=== PATIENT | female | born 1995 | race Caucasian/White ===

== ENCOUNTER → 2018-07-15 18:08 | Outpatient (CLI) | payer OTHER, SELFPAY ==
[2018-07-15 18:24] LABS: Basophils % 0.4 % (0.1-2.0); Eosinophils # 0.3 K/mm3 (0.0-0.4); Eosinophils % 2.3 % (0.1-12.0); Hematocrit 42.5 % (37.0-47.0); Hemoglobin 13.7 g/dL (12.2-16.2); Lymphocytes # 2.6 K/mm3 (0.7-4.5); Mean Corpuscular HGB Conc 32.3 g/dL (31.8-35.4); Mean Corpuscular Hemoglobin 30.8 pg (27.0-31.2); Mean Corpuscular Volume 95.4 fl (81-99); Mean Platelet Volume 8.7 fl (7.4-10.4); Monocytes # 0.6 K/mm3 (0.1-1.0); Monocytes % 5.2 % (1.7-9.3); Neutrophils # 7.9 K/mm3 (1.8-7.8); Neutrophils % 69.2 % (37.0-80.0); Platelet Count 358 K/mm3 (142-424); Red Blood Count 4.46 M/mm3 (4.20-5.40); Red Cell Distribution Width 13.1 % (11.5-17.5); White Blood Count 11.4 K/mm3 (4.8-10.8)
[2018-07-15 18:43] LABS: Alanine Aminotransferase 20 U/L (12-78); Albumin Level 4.2 gm/dL (3.4-5.0); Albumin/Globulin Ratio 1.2 (1.1-1.8); Alkaline Phosphatase 119 U/L (46-116); Anion Gap 16.1 mEq/L (5-15); Aspartate Amino Transferase 13 U/L (15-37); Bilirubin,Total 0.2 mg/dL (0.2-1.0); Blood Urea Nitrogen 9 mg/dL (7-18); Calcium 8.8 mg/dL (8.5-10.1); Carbon Dioxide 23 mmol/L (21.0-32.0); Chloride 103 mmol/L (98-107); Chol/HDL Ratio 5.1 (1-3.5); Cholesterol 233 mg/dL (140-200); Creatinine,Serum 0.77 mg/dL (0.55-1.02); Estimated Glomerular Filt Rate 93 ml/min (>60); GFR (African American) 112 ML/MIN (>60); Globulin 3.5 gm/dl (1.3-3.2); Glucose 94 mg/dL (74-106); HDL Cholesterol 46 mg/dL (29-89); LDL Cholesterol 164 mg/dL (0-130); Potassium 4.1 mmoL/L (3.5-5.1); Sodium 138 mmol/L (136-145); Thyroid Stimulating Hormone 3.39 uIU/ml (0.358-3.740); Total Protein,Serum 7.7 gm/dL (6.4-8.2); Triglycerides 115 mg/dL (30-200); VLDL Cholesterol 23 mg/dL (0-40)
[2018-07-18 10:59] LABS: Vitamin D 25 Hydroxy 24.9 ng/mL (30.0-100.0)
== END ==
PROVIDERS: Visit Provider Nurse Practitioner Family
DX: R53.83 Other fatigue (principal); E55.9 Vitamin D deficiency, unspecified; Z79.899 Other long term (current) drug therapy
CPT/HCPCS: 80053; 80061; 82652; 84439; 84443; 85025

== ENCOUNTER → 2019-03-27 14:10 | Outpatient (CLI) | payer OTHER, SELFPAY ==
[2019-03-27 15:03] LABS: Amphetamine/Metha Screen,Urine Negative ng/mL (<1000); Barbiturates Screen,Urine Negative ng/mL (<200); Benzodiazepines Screen,Urine Positive ng/mL (<200); Cannabinoid Screen,Urine Negative ng/mL (<50); Cocaine Screen,Urine Negative ng/mL (<300); Methadone Screen,Urine Negative ng/mL (<300); Opiate Screen,Urine Negative ng/mL (<300); Phencyclidine Screen,Urine Negative ng/mL (<25)
[2019-04-04 02:28] LABS: Alprazolam Negative (Cutoff=100); Benzodiazepines Positive ng/mL (Cutoff=100); Clonazepam Positive (.); Flurazepam Negative (Cutoff=100); Lorazepam Negative (Cutoff=100); Midazolam Negative (Cutoff=100); Temazepam Negative (Cutoff=100); Triazolam Negative (Cutoff=100)
[2019-04-04 06:50] LABS: Clonazepam Confirm 998 ng/mL (Cutoff=100)
== END ==
PROVIDERS: Visit Provider Emergency Medicine
DX: Z79.899 Other long term (current) drug therapy (principal); F41.9 Anxiety disorder, unspecified
CPT/HCPCS: 80305; 80346

== ENCOUNTER → 2019-05-19 13:33 | Outpatient (CLI) | payer OTHER, SELFPAY ==
[2019-05-19 15:52] LABS: Amphetamine/Metha Screen,Urine Negative ng/mL (<1000); Barbiturates Screen,Urine Negative ng/mL (<200); Benzodiazepines Screen,Urine Negative ng/mL (<200); Cannabinoid Screen,Urine Positive ng/mL (<50); Cocaine Screen,Urine Negative ng/mL (<300); Methadone Screen,Urine Negative ng/mL (<300); Opiate Screen,Urine Negative ng/mL (<300); Phencyclidine Screen,Urine Negative ng/mL (<25)
[2019-05-24 09:11] LABS: Alprazolam Negative (Cutoff=100); Benzodiazepines Negative ng/mL (Cutoff=100); Clonazepam Negative (Cutoff=100); Flurazepam Negative (Cutoff=100); Lorazepam Negative (Cutoff=100); Midazolam Negative (Cutoff=100); Temazepam Negative (Cutoff=100); Triazolam Negative (Cutoff=100)
== END ==
PROVIDERS: Nurse Practitioner Family; Visit Provider Emergency Medicine
DX: Z79.899 Other long term (current) drug therapy (principal); F32.9 Major depressive disorder, single episode, unspecified; F41.9 Anxiety disorder, unspecified
CPT/HCPCS: 80305; 80346

== ENCOUNTER → 2019-06-13 14:38 | Outpatient (CLI) | payer OTHER, SELFPAY ==
[2019-06-13 18:48] LABS: Amphetamine/Metha Screen,Urine Negative ng/mL (<1000); Barbiturates Screen,Urine Negative ng/mL (<200); Benzodiazepines Screen,Urine Negative ng/mL (<200); Cannabinoid Screen,Urine Positive ng/mL (<50); Cocaine Screen,Urine Negative ng/mL (<300); Methadone Screen,Urine Negative ng/mL (<300); Opiate Screen,Urine Negative ng/mL (<300); Phencyclidine Screen,Urine Negative ng/mL (<25)
[2019-06-21 14:11] LABS: Alprazolam Negative (Cutoff=100); Benzodiazepines Negative ng/mL (Cutoff=100); Clonazepam Negative (Cutoff=100); Flurazepam Negative (Cutoff=100); Lorazepam Negative (Cutoff=100); Midazolam Negative (Cutoff=100); Temazepam Negative (Cutoff=100); Triazolam Negative (Cutoff=100)
== END ==
PROVIDERS: Visit Provider Emergency Medicine
DX: Z79.899 Other long term (current) drug therapy (principal)
CPT/HCPCS: 80305; 80346

== ENCOUNTER 2020-04-23 21:45 | Emergency (ER) | payer OTHER, SELFPAY ==
[2020-04-23 21:55] VITALS: BP 136/76; PULSE 99; RESP 16; TEMP 36.7; O2SAT 99; BMI 43.3
--- NOTE | 2020-04-23 22:04 | HMH.EDSKAF ---
ED Disposition Clinical Impression: Puncture wound of foot Qualifiers: Encounter type: initial encounter Laterality: right Qualified Code(s): S91.331A - Puncture wound without foreign body, right foot, initial encounter Disposition: Home, Self-Care Condition on Discharge: Good Instructions: DI for Puncture Wound Additional Instructions: keep clean and see pcp for follow up Referrals: Dalila Riggs APRN [Primary Care Provider] - - Critical Care Critical Care Time: No Attestation: On 04/23/20, the high probability of a clinically significant, sudden or life threatening deterioration of the following system(s) required my full and direct attention, intervention and personal management. The time I documented below is in addition to time spent performing reported procedures but includes the following listed in this critical care notation. Medical Decision Making - Medical Records Medical records reviewed: Yes: I reviewed the patient's medical records. - Zachariah Inquiry Pt receiving controlled substance: No Vital Signs: 04/23/20 21:55 Temperature 98.1 F Temperature Source Oral Pulse Rate [Right Brachial] 99 H Respiratory Rate 16 Blood Pressure [Right Arm] 136/76 Blood Pressure Mean [Right Arm] 96 Blood Pressure Source [Right Arm] Automatic Cuff Blood Pressure Position [Right Arm] Sitting 02 Sat by Pulse Oximetry 99 Oxygen Delivery Method Room Air Orders (Tests/Meds): ED MEDICATIONS Discontinued Medications Generic Name Dose Route Start Last Admin Trade Name Frelennox PRN Reason Stop Dose Admin Tetanus/Diphtheria Toxoids 0.5 ml 04/23/20 22:00 04/23/20 22:02 Tenivac 0.5ml Syringe IM 04/23/20 22:01 0.5 ml .ONCE ONE Administration Skin/Abscess/FB HPI - General Chief complaint: Extremity Injury, Lower Stated complaint: AO 0922@11AM Nail wound R foot Time Seen by Provider: 04/23/20 22:04 Mode of Arrival: Ambulatory Source of Information: Patient, Medical Record Limitations: No Limitations Description of Symptoms (Recalled from ER Triage Doc. by RN): Patient reports she stepped on a small nail with her right foot. Patient just wants her tdap updated. - History of Present Illness HPI narrative: puncture wd rt foot- stepped on nail MD complaint: other (puncture wd ) Tetanus up to date: no Location: R foot Severity: moderate Associated symptoms: denies other symptoms Treatments prior to arrival: none - Related Data Home Medications Medication Instructions Recorded Confirmed levothyroxine 112 mcg tablet 187 mcg PO 30 Days tab 07/15/18 06/13/19 Previous Rx's Medication Instructions Recorded citalopram 10 mg tablet 10 mg PO DAILY #90 tab 03/29/19 trazodone 50 mg tablet 50 mg PO QHS #90 tab 03/29/19 clonazepam 0.5 mg tablet 0.5 mg PO TID 14 Days #42 tab 05/19/19 vilazodone 20 mg tablet 20 mg PO DAILY 30 Days #30 tab 06/05/19 Allergies Allergy/AdvReac Type Severity Reaction Status Date / Time ropinirole AdvReac Severe Anaphylaxis Verified 06/13/19 09:22 [facility] History - Hepatitis A Screen Drug use history?: No High risk sexual behaviors?: No History of sexually transmitted infection?: No Currently employed?: No Childcare worker?: No Do you have indoor plumbing?: Yes Do you have electricity?: Yes Attestation statement:: This patient has been screened for Hepatitis A risk factors. I have reviewed the patient's past medical history: Yes Medical History: Reports:: Anxiety, Cancer, Depression, Migraine Denies:: Chronic Obstructive Pulmonary Disease (COPD), Diabetes Mellitus Type 1, Diabetes Mellitus Type 2, Internal Pacemaker, Transient Ischemic Attacks (TIA) Other Medical History: Reports: Hypothyroidism, Thyroid Disease Laterality Cases: Bilateral: Myringotomy (Ear Tubes) Other Surgeries: Yes: Thyroidectomy, Other. No: Pacemaker Amputation: No Fractures: No - Social History Smoking Status: Former smoker # Packs/Day (cigarettes): 1 #Yrs smoked (if
[2020-04-23 22:08] VITALS: BP 136/76; PULSE 95; RESP 16; TEMP 36.7; O2SAT 98
== END 2020-04-23 22:15 | disposition home or self-care (01) ==
PROVIDERS: Emergency Provider Emergency Medicine; PCP Nurse Practitioner
DX: S91.331A Puncture wound without foreign body, right foot, initial encounter (principal); Z23 Encounter for immunization; W22.8XXA Striking against or struck by other objects, initial encounter; Y92.019 Unspecified place in single-family (private) house as the place of occurrence of the external cause; F41.8 Other specified anxiety disorders; G43.709 Chronic migraine without aura, not intractable, without status migrainosus; E03.9 Hypothyroidism, unspecified; Z87.891 Personal history of nicotine dependence
CPT/HCPCS: 90471; 90714; 96372; 99281

== ENCOUNTER → 2021-12-23 09:18 | Outpatient (CLI) | payer OTHER, SELFPAY | PROVIDERS: PCP Nurse Practitioner Family; Visit Provider Obstetrics & Gynecology | DX: Z31.430 Encounter of female for testing for genetic disease carrier status for procreative management (principal); Z36.0 Encounter for antenatal screening for chromosomal anomalies; O28.3 Abnormal ultrasonic finding on antenatal screening of mother | CPT/HCPCS: 36415 ==

== ENCOUNTER → 2022-01-20 08:49 | Outpatient (CLI) | payer OTHER, SELFPAY ==
[2022-01-20 09:13] LABS: Basophils # 0.1 K/mm3 (0-0.2); Basophils % 0.7 % (0.1-2.0); Eosinophils # 0.1 K/mm3 (0.0-0.4); Eosinophils % 1.6 % (0.1-12.0); Hematocrit 37.4 % (37.0-47.0); Hemoglobin 12.6 g/dL (12.2-16.2); Lymphocytes # 1.5 K/mm3 (0.7-4.5); Mean Corpuscular HGB Conc 33.8 g/dL (31.8-35.4); Mean Corpuscular Hemoglobin 31.8 pg (27.0-31.2); Mean Platelet Volume 9.2 fl (7.4-10.4); Monocytes # 0.3 K/mm3 (0.1-1.0); Monocytes % 3.2 % (1.7-9.3); Neutrophils # 6.7 K/mm3 (1.8-7.8); Neutrophils % 77.6 % (37.0-80.0); Platelet Count 222 K/mm3 (142-424); Red Blood Count 3.98 M/mm3 (4.20-5.40); Red Cell Distribution Width 13.4 % (11.5-17.5); White Blood Count 8.6 K/mm3 (4.8-10.8)
[2022-01-21 07:12] LABS: HIV Screen 4th Generation wRfx Non Reactive (Non Reactive); Hepatitis B Surface Antigen Negative (Negative); Hepatitis C Antibody <0.1 s/co ratio (0.0-0.9)
[2022-01-21 08:23] LABS: Rubella Antibodies, IgG <0.90 index (Immune >0.99)
[2022-01-21 10:12] LABS: Rapid Plasma Reagin Ab Titer Non Reactive (NonRea<1:1)
== END ==
PROVIDERS: PCP Nurse Practitioner Family; Visit Provider Obstetrics & Gynecology
DX: Z34.90 Encounter for supervision of normal pregnancy, unspecified, unspecified trimester (principal)
CPT/HCPCS: 36415; 85025; 86592; 86703; 86762; 86850; 87340; 87380; G0432

== ENCOUNTER → 2022-02-17 08:35 | Outpatient (CLI) | payer OTHER, SELFPAY | PROVIDERS: PCP Nurse Practitioner Family; Visit Provider Obstetrics & Gynecology | DX: Z34.90 Encounter for supervision of normal pregnancy, unspecified, unspecified trimester (principal) ==

== ENCOUNTER → 2022-04-03 08:38 | Outpatient (CLI) | payer OTHER, SELFPAY ==
[2022-04-03 09:07] LABS: Basophils % 0.3 % (0.1-2.0); Eosinophils # 0.2 K/mm3 (0.0-0.4); Eosinophils % 1.1 % (0.1-12.0); Hematocrit 38.8 % (37.0-47.0); Hemoglobin 11.9 g/dL (12.2-16.2); Lymphocytes # 1.9 K/mm3 (0.7-4.5); Lymphocytes % 13.8 % (10-50); Mean Corpuscular HGB Conc 30.8 g/dL (31.8-35.4); Mean Corpuscular Hemoglobin 30.6 pg (27.0-31.2); Mean Corpuscular Volume 99.4 fl (81-99); Mean Platelet Volume 9.1 fl (7.4-10.4); Monocytes # 0.6 K/mm3 (0.1-1.0); Monocytes % 4.5 % (1.7-9.3); Neutrophils # 10.8 K/mm3 (1.8-7.8); Neutrophils % 80.3 % (37.0-80.0); Platelet Count 305 K/mm3 (142-424); Red Cell Distribution Width 13.7 % (11.5-17.5); White Blood Count 13.4 K/mm3 (4.8-10.8)
[2022-04-03 10:10] LABS: Glucose,Fasting 100 mg/dl (74-100)
[2022-04-03 10:17] LABS: Thyroid Stimulating Hormone 2.83 uIU/mL (0.465-4.68)
[2022-04-03 11:09] LABS: Glucose 1 Hour 132 mg/dL (74-100)
== END ==
PROVIDERS: PCP Nurse Practitioner Family; Visit Provider Obstetrics & Gynecology
DX: Z34.90 Encounter for supervision of normal pregnancy, unspecified, unspecified trimester (principal); E03.9 Hypothyroidism, unspecified
CPT/HCPCS: 36415; 82951; 84443; 85025

== ENCOUNTER → 2022-06-08 10:42 | Outpatient (CLI) | payer OTHER, SELFPAY ==
--- NOTE | 2022-06-08 10:42 | US_ITS ---
FINAL REPORT CLINICAL HISTORY: lga/bpp/ob follow up FINDINGS: There is a single live intrauterine gestation. Presentation is cephalic. The cervix is closed and measures 3.9 cm Placenta is lateral/posterior fundal wrap, grade 2. movement is noted. Heart rate is measured at 156 beats per minute. CARLOS: 15.8 cm, normal. MEASUREMENTS: ULTRASOUND AGE: 37 weeks 0 days. GESTATION AGE: 36 weeks 3 days. ESTIMATED WEIGHT: 2954 g GROWTH PERCENTILE: 55% L MP percentile BPD: 9.2 cm corresponding with 37 weeks 3 days. OFD: 11.9 cm. HC: 33.4 cm corresponding with 38 weeks 2 days. AC: 32.3 cm corresponding with 36 weeks 2 days. FL: 7.0 cm corresponding with 36 weeks 0 days. HC/AC: 1.03 CI: 77% FL/BPD: 76% FL/AC: 22% BPP: 03/09 Breathin/2 Movement: 2/2 Tone: 2/2 Fluid volume: 2/2 IMPRESSION: Single living IUP with an ultrasound age of 37 weeks 0 days. BPP: 03/09 CARLOS: 15.8 cm Reviewed, Interpreted and Dictated by Tyler Hunt MD Transcribed by Roseann Call Authenticated and [facility]
== END ==
PROVIDERS: PCP Nurse Practitioner Family; Visit Provider Obstetrics & Gynecology
DX: O36.60X0 Maternal care for excessive fetal growth, unspecified trimester, not applicable or unspecified (principal); Z3A.20 20 weeks gestation of pregnancy
CPT/HCPCS: 76816; 76819

== ENCOUNTER → 2022-06-09 10:30 | Outpatient (CLI) | payer OTHER, SELFPAY | PROVIDERS: Visit Provider Obstetrics & Gynecology | DX: Z34.90 Encounter for supervision of normal pregnancy, unspecified, unspecified trimester (principal) | CPT/HCPCS: 86403 ==

== ENCOUNTER 2022-06-28 16:00 | Inpatient (IN) | payer OTHER, SELFPAY ==
[2022-06-28 16:17] VITALS: BMI 38.7
[2022-06-28 17:08] LABS: Coronavirus 19, PCR Not Detected (NotDetected); Influenza A, PCR Not Detected (NotDetected); Influenza B, PCR Not Detected (NotDetected); Microscopic, Urine URINE MICROSCOPIC (MICROSCOPIC)
[2022-06-28 17:13] LABS: Basophils # 0.1 K/mm3 (0-0.2); Basophils % 0.5 % (0.1-2.0); Eosinophils # 0.2 K/mm3 (0.0-0.4); Eosinophils % 1.1 % (0.1-12.0); Hematocrit 39.2 % (37.0-47.0); Lymphocytes # 1.7 K/mm3 (0.7-4.5); Lymphocytes % 12.5 % (10-50); Mean Corpuscular HGB Conc 33.2 g/dL (31.8-35.4); Mean Corpuscular Hemoglobin 31.6 pg (27.0-31.2); Mean Corpuscular Volume 95.3 fl (81-99); Mean Platelet Volume 9.5 fl (7.4-10.4); Monocytes # 0.8 K/mm3 (0.1-1.0); Monocytes % 5.6 % (1.7-9.3); Neutrophils # 10.9 K/mm3 (1.8-7.8); Neutrophils % 80.2 % (37.0-80.0); Platelet Count 313 K/mm3 (142-424); Red Blood Count 4.11 M/mm3 (4.20-5.40); Red Cell Distribution Width 13.7 % (11.5-17.5); White Blood Count 13.6 K/mm3 (4.8-10.8)
[2022-06-28 17:14] LABS: Appearance,Urine CLOUDY (Clear); Bilirubin,Urine Negative (Negative); Blood, Urine Negative (Negative); Color,Urine YELLOW (Yellow); Glucose,Urine (UA) Negative (Negative); Ketones,Urine Negative (Negative); Leukocyte Esterase,Urine TRACE (Negative); Nitrate,Urine Negative (Negative); PH,Urine 7.5 (5.0-8.5); Protein,Urine TRACE (Negative); Urobilinogen,Urine 0.2 EU/dl (0.2)
[2022-06-28 17:26] LABS: Bacteria,Urine 3+ /lpf; Renal Epithelial Cells,Urine Occasional #/lpf (0); WBC,Urine Occasional #/hpf (0-3)
[2022-06-28 17:27] LABS: Barbiturates Screen,Urine Negative ng/ml (<200); Benzodiazepines Screen,Urine Negative ng/ml (<200); Mucus,Urine Trace /lpf
[2022-06-28 17:28] LABS: Amphetamine/Metha Screen,Urine Negative ng/ml (<1000); Cannabinoid Screen,Urine Negative ng/ml (<50)
[2022-06-28 17:29] LABS: Cocaine Screen,Urine Negative ng/ml (<300)
[2022-06-28 17:30] LABS: Methadone Screen,Urine Negative ng/ml (<300); Opiate Screen,Urine Negative ng/ml (<300)
[2022-06-28 17:31] LABS: Phencyclidine Screen,Urine Negative ng/ml (<25)
[2022-06-28 17:33] VITALS: BP 130/70; PULSE 106; RESP 20; TEMP 36.7; O2SAT 100; BMI 38.7
--- NOTE | 2022-06-29 06:57 | EXP.OB.APHP ---
OB - H&P: HPI Antepartum History of Present Illness Chief complaint: Scheduled elective induction of labor History of present illness: Ms Melia Larkin is a 27 yo at 39w3d, by first trimester ultrasound, with EDC 07/03/22, who presents to [facility] Labor and Delivery for scheduled elective induction of labor. GBS negative. She has had good care. History of Present Criteria for establishing EDC:: based on 1st trimester US only care: good care Ultrasounds: normal mid trimester US Obstetrical complications: other (hypothyroidism) Labs Blood type: O (+) positive Rubella: nonimmune RPR/VDRL: nonreactive GBS status: negative HBsAG: negative [facility] Medical History Size of fetus inconsistent with dates in third trimester Thyroid cancer Social History Smoking Status: Current every day smoker tobacco type: cigarettes packs per day: 1 alcohol intake: never substance use type: marijuana and painkillers current occupational status: unemployed Travel in the last 8 weeks: None number of children: 0 Review of Systems Review of Systems Review of systems:: pertinent systems reviewed and negative unless documented below Meds Home Medications and Allergies Home Medications Medication Instructions Recorded Confirmed Type levothyroxine 200 mcg tablet 200 mcg PO 12/09/21 06/16/22 History (Synthroid) famotidine 20 mg tablet 20 mg PO BID #60 tabs 12/23/21 06/16/22 Rx levothyroxine 50 mcg tablet 50 mcg PO DAILY 01/20/22 06/16/22 History (Euthyrox) promethazine 25 mg tablet 25 mg PO .Q8HRS PRN nausea and 02/17/22 06/16/22 Rx vomiting #20 tabs ferrous sulfate 325 mg (65 mg 325 mg PO DAILY #30 tabs 02/19/22 06/16/22 Rx iron) tablet buspirone 10 mg tablet 10 mg PO BID #60 tabs 04/20/22 06/16/22 Rx New Prescriptions to Start Prescriptions: Allergies Allergy/AdvReac Type Severity Reaction Status Date / Time ropinirole AdvReac Severe Anaphylaxis Verified 06/23/22 14:22 OB - H&P: Exam Physical Exam Vital signs: Temp Pulse Resp BP Pulse Ox 98.0 F 106 H 20 130/70 100 06/28/22 17:33 06/28/22 17:33 06/28/22 17:33 06/28/22 17:33 06/28/22 17:33 Constitutional no acute distress and cooperative Routine HEENT Exam Head: Present normocephalic and atraumatic Eye: Absent conjunctivae pink ENT: Present mucous membranes moist Routine Neck Exam Present full ROM Routine Respiratory Exam Present CTA bilaterally and normal respiratory effort Routine Cardiovascular Exam Present RRR Routine Abdominal Exam Present soft (Gravid); Absent tenderness Routine Exam External: Present normal urethra appearance; Absent erythema, lesions or lacerations Routine Extremities Exam Present full ROM; Absent edema or calf tenderness Routine Neurological Exam Present alert, oriented X3 and moving all extremities Routine Psychiatric Exam Present normal affect and cooperative Detailed Labor and Delivery Exam Dilation (cm): 3 Effacement (%): 60 Cervix position: mid station: -3 Consistency: medium Membranes: artificially ruptured (Amniotomy performed at 0652, moderate amount ) Amniotic fluid: thin meconium Baseline heart rate: 135 monitor accelerations: Present monitor decelerations: None skilled nursing variability: Moderate (11-25) Contraction frequency (min): 3 Tachysystole: No OB - Results Labs Labs: Short CBC 06/28/22 Range/Units 16:49 WBC 13.6 H (4.8-10.8) K/mm3 Hgb 13.0 (12.2-16.2) g/dL Hct 39.2 (37.0-47.0) % Plt Count 313 (142-424) K/mm3 Urine 06/28/22 Range/Units 16:49 Urine Color Yellow (Yellow) Urine Appearance Cloudy (Clear) Urine pH 7.5 (5.0-8.5) Ur Specific [place] 1.020 (1.005-1.030) Urine Protein Trace (Negative) Urine Glucose (UA) Negative (Negative) OB - A/P Antepart
--- NOTE | 2022-06-29 08:58 | HMH.PHAINT1 ---
Pharmacy Intervention Comments: MEDICATION RECONCILIATION COMPLETED ON PATIENT USING EXTERNAL FILL HISTORY FROM PHARMACY. -JOSE MARCANO, RAYMONDD
--- NOTE | 2022-06-29 09:53 | P.PN_ITS ---
[facility] Medical History Size of fetus inconsistent with dates in third trimester Thyroid cancer Social History Smoking Status: Current every day smoker tobacco type: cigarettes packs per day: 1 alcohol intake: never substance use type: marijuana and painkillers current occupational status: unemployed Travel in the last 8 weeks: None number of children: 0 [facility] Anesthesia Checklist Patient Identification Patient Identification: Arm Band and Verbal (Name & ) Structural Data Admitted From: Inpatient Planned Operative Procedure/s: Labor epidural Consent for Planned Operative Procedure(s) Verified: Yes NPO Status Verified Time NPO: 00:00 Chart Verification Results Verified: CBC and BMP Additional verifications Patient : Yes Airway Assessment C-Spine Mobility Assessed: Yes TMJ Mobility Assessed: Yes Dentition: Good Dentition Neurological Assessment Level of Consciousness: Awake Hx Seizures: No Numbness or tingling in extremities: No Anesthesia Plan Anesthesia Risk discussed: Yes Anesthesia Plan: Verified ASA Class: III Anesthesia Type: Epidural
--- NOTE | 2022-06-29 23:30 | EXP.DN ---
Delivery Note Delivery Date:: 06/29/22 Delivery Time:: 23:04 Anesthesia Type: Epidural Was labor medically induced?: No Induction method: per pitocin protocol Gestational age (weeks): 39 delivered prior to 39 weeks?: No Infant Gender: Female at 1 minute: 8 at 5 minutes: 9 LAC or MLE?: MLE Delivery Procedure:: Mom complete with epidural. Pushed for approximately 50 minutes. Midline episiotomy performed for maternal exhaustion and tight perineal band. Patient gave verbal consent for MLE. Head delivered spontaneously over MLE in NANCY position. No nuchal cord. Anterior shoulder delivered with gentle downward pressure. Posterior shoulder and remainder of body delivered spontaneously. Baby placed on maternal abdomen, mouth and nares bulb suctioned, warmed/dried and stimulated. Delayed cord clamping was performed for 60 seconds. Cord was clamped and cut by father of baby. Cord blood was obtained. Placenta delivered spontaneously and intact. Midline episiotomy repaired with 3-0 Vicryl. Excellent hemostasis noted. Mom and baby were skin to skin and doing well after delivery. Live female baby (baby's name is Debbi) weighing 8 lb 12 oz APGARs 8, 9 EBL 300 cc Placental Delivery Description: Spontaneous
[2022-06-30 07:31] LABS: Basophils # 0.1 K/mm3 (0-0.2); Basophils % 0.3 % (0.1-2.0); Eosinophils # 0.1 K/mm3 (0.0-0.4); Eosinophils % 0.4 % (0.1-12.0); Hematocrit 32.3 % (37.0-47.0); Hemoglobin 10.9 g/dL (12.2-16.2); Lymphocytes # 2.1 K/mm3 (0.7-4.5); Lymphocytes % 9.9 % (10-50); Mean Corpuscular HGB Conc 33.6 g/dL (31.8-35.4); Mean Corpuscular Hemoglobin 32.3 pg (27.0-31.2); Mean Platelet Volume 9.6 fl (7.4-10.4); Monocytes # 1.1 K/mm3 (0.1-1.0); Monocytes % 5.1 % (1.7-9.3); Neutrophils # 17.8 K/mm3 (1.8-7.8); Neutrophils % 84.2 % (37.0-80.0); Platelet Count 288 K/mm3 (142-424); Red Blood Count 3.37 M/mm3 (4.20-5.40); Red Cell Distribution Width 13.6 % (11.5-17.5); White Blood Count 21.1 K/mm3 (4.8-10.8)
[2022-06-30 07:34] LABS: MANUAL DIFFERENTIAL MANUAL DIFFERENTIAL (MANUAL DIFF)
[2022-06-30 07:58] LABS: Lymphocytes % 6 % (10-50); Monocytes % 4 % (2-9); Neutrophils % 90 % (42-76); Platelet Estimate Normal; RBC Morphology Normal; Total Cells Counted 100
--- NOTE | 2022-06-30 08:55 | P.PN_ITS ---
Subjective *Date: 06/30/22 *Time: 08:55 Interval history: PPD # 1 s/p with MLE Resting comfortably. She is breast feeding. Light lochia. Voiding without difficulty and passing flatus. Denies fever/chills, chest pain and shortness of breath. No headaches, vision changes or swelling. Medical Exam Vital signs and Labs for Last 24 Hours: Laboratory Results - last 24 hr 06/30/22 07:16: WBC 21.1 H* D, RBC 3.37 L, Hgb 10.9 L, Hct 32.3 L, MCV 96.0, MCH 32.3 H, MCHC 33.6, RDW 13.6, Plt Count 288, MPV 9.6, Neut % (Auto) 84.2 H, Lymph % (Auto) 9.9 L, [place] % (Auto) 5.1, Eos % (Auto) 0.4, Baso % (Auto) 0.3, Neut # (Auto) 17.8 H, Lymph # (Auto) 2.1, [place] # (Auto) 1.1 H, Eos # (Auto) 0.1, Baso # (Auto) 0.1, Total Counted 100, Neutrophils % (Manual) 90 H, Lymphocytes % (Manual) 6 L, Monocytes % (Manual) 4, Platelet Estimate Normal, RBC Morphology Normal I & O for Labs for Last 24 Hours: Intake & Output 06/27/22 06/28/22 06/29/22 06/30/22 23:59 23:59 23:59 23:59 Weight 254 lb 15.998 oz Microbiology Reports for the Last 24 Hours: Microbiology 06/28/22 16:49 Urine,Clean Catch Urine Culture - Preliminary NO GROWTH AFTER 24 HOURS Head: Present atraumatic and normocephalic ENT: Present mucous membranes moist Neck: Present full ROM Respiratory: Present CTA bilaterally and normal respiratory effort Cardiac: Present Reg Rate and Rhythm GI: Present soft and normal bowel sounds; Absent distention or tenderness Comments:: Uterine fundus firm and below umbilicus Rectal (female): Present deferred (female): Present deferred Extremities: Present normal inspection and full ROM; Absent edema or calf tenderness Neuro: Present Grossly Intact, alert, awake, oriented x 3 and moves all extremities Assessment and Plan *Assessment and plan (1) : Status: Acute Qualifiers: Weeks of gestation: 38 weeks Qualified Code(s): Z3A.38 - 38 weeks gestation of Category: Medical Code(s): Z34.90 - Encounter for supervision of normal , unspecified, unspecified trimester (2) Obesity (BMI 35.0-39.9 without comorbidity): Status: Acute Category: Medical Code(s): E66.9 - Obesity, unspecified (3) Hypothyroidism: Status: Acute Qualifiers: Hypothyroidism type: other Qualified Code(s): E03.8 - Other specified hypothyroidism Category: Medical Code(s): E03.9 - Hypothyroidism, unspecified (4) Depression: Status: Acute Qualifiers: Depression Type: unspecified Qualified Code(s): F32.A - Depression, unspecified Category: Medical Code(s): F32.9 - Major depressive disorder, single episode, unspecified (5) Anxiety: Status: Acute Category: Medical Code(s): F41.9 - Anxiety disorder, unspecified (6) Tobacco use: Status: Acute Category: Social Hx Code(s): Z72.0 - Tobacco use (7) Rubella non-immune status, antepartum: Status: Acute Category: Medical Code(s): O09.899 - Supervision of other high risk pregnancies, unspecified trimester; Z28.39 - Other underimmunization status Plan Continue routine care Encouraged increased ambulation MMR before discharge Plan d/c home PPD # 2
--- NOTE | 2022-07-01 07:56 | P.PCN_ITS ---
[facility] Procedure Note Date: 06/30/22 Time: 15:45 Procedure Note:: Called by OB RN due to patient complaint of unrelenting headache. Conservative measures including ;laying flat and consuming caffeine had been unsuccessful. Discussed options with patient. Explained risks of blood patch to patient and family. Patient agreed to proceed. Accessed epidural space at L3-4 and inserted 13 ccs of autologous blood. Patient tolerated well. Patient stated immediate relief. Requested OB RN to continue monitoring for adverse effects.
[2022-07-01 08:01] LABS: Basophils # 0.1 K/mm3 (0-0.2); Basophils % 0.4 % (0.1-2.0); Eosinophils # 0.3 K/mm3 (0.0-0.4); Eosinophils % 1.8 % (0.1-12.0); Hematocrit 31.3 % (37.0-47.0); Lymphocytes # 2.2 K/mm3 (0.7-4.5); Lymphocytes % 16.2 % (10-50); Mean Corpuscular HGB Conc 31.9 g/dL (31.8-35.4); Mean Corpuscular Hemoglobin 31.6 pg (27.0-31.2); Monocytes # 0.6 K/mm3 (0.1-1.0); Monocytes % 4.1 % (1.7-9.3); Neutrophils # 10.6 K/mm3 (1.8-7.8); Neutrophils % 77.5 % (37.0-80.0); Platelet Count 293 K/mm3 (142-424); Red Blood Count 3.16 M/mm3 (4.20-5.40); Red Cell Distribution Width 13.8 % (11.5-17.5); White Blood Count 13.7 K/mm3 (4.8-10.8)
--- NOTE | 2022-07-01 08:24 | EXP.ACUTE.PN ---
Subjective *Date: 07/01/22 *Time: 08:47 Interval history: PPD # 2 s/p with MLE Resting comfortably in bed. She is breast feeding. Light lochia. Pain controlled. Tolerating regular diet. Voiding without difficulty and passing flatus. Denies fever/chills, chest pain and shortness of breath. She had a headache that worsened during the day yesterday and subsequently had a blood patch performed. She admits headache has resolved this morning. Denies dizziness and lightheadedness. Admits to mild lower extremity swelling. Medical Exam Vital signs and Labs for Last 24 Hours: Laboratory Results - last 24 hr 06/28/22 16:49: Urine Color Yellow, Urine Appearance Cloudy, Urine pH 7.5, Ur Specific [place] 1.020, Urine Protein Trace, Urine Glucose (UA) Negative, Urine Ketones Negative, Urine Blood Negative, Urine Nitrate Negative, Urine Bilirubin Negative, Urine Urobilinogen 0.2, Ur Leukocyte Esterase Trace, Urine WBC Occasional, Ur Squamous Epith Cells 5-10, Ur Renal Epithelial Cell Occasional, Urine Bacteria 3+, Urine Mucus Trace 06/28/22 16:49: Urine Opiates Screen Negative, Urine Methadone Screen Negative, Ur Barbituates Screen Negative, Ur Phencyclidine Scrn Negative, Ur Amphetamines Screen Negative, U Benzodiazepines Scrn Negative, Urine Cocaine Screen Negative, U Marijuana (THC) Screen Negative 07/01/22 07:53: WBC 13.7 H D, RBC 3.16 L, Hgb 10.0 L, Hct 31.3 L, MCV 99.0, MCH 31.6 H, MCHC 31.9, RDW 13.8, Plt Count 293, MPV 10.0, Neut % (Auto) 77.5, Lymph % (Auto) 16.2, [place] % (Auto) 4.1, Eos % (Auto) 1.8, Baso % (Auto) 0.4, Neut # (Auto) 10.6 H, Lymph # (Auto) 2.2, [place] # (Auto) 0.6, Eos # (Auto) 0.3, Baso # (Auto) 0.1 I & O for Labs for Last 24 Hours: Intake & Output 06/28/22 06/29/22 06/30/22 07/01/22 23:59 23:59 23:59 23:59 Weight 254 lb 15.998 oz Microbiology Reports for the Last 24 Hours: Microbiology 06/28/22 16:49 Urine,Clean Catch Urine Culture - Preliminary Gram Positive Cocci Head: Present atraumatic and normocephalic ENT: Present mucous membranes moist Neck: Present normal inspection and full ROM Respiratory: Present CTA bilaterally and normal respiratory effort Cardiac: Present Reg Rate and Rhythm GI: Present soft and normal bowel sounds; Absent distention or tenderness Comments:: Uterine fundus firm and below umbilicus Rectal (female): Present deferred (female): Present deferred Extremities: Present normal inspection, full ROM and edema (trace lower extremity edema); Absent calf tenderness Neuro: Present alert, awake, oriented x 3 and moves all extremities Assessment and Plan *Assessment and plan (1) : Status: Acute Qualifiers: Weeks of gestation: 38 weeks Qualified Code(s): Z3A.38 - 38 weeks gestation of Category: Medical Code(s): Z34.90 - Encounter for supervision of normal , unspecified, unspecified trimester (2) Hypothyroidism: Status: Acute Qualifiers: Hypothyroidism type: other Qualified Code(s): E03.8 - Other specified hypothyroidism Category: Medical Code(s): E03.9 - Hypothyroidism, unspecified (3) Obesity (BMI 35.0-39.9 without comorbidity): Status: Acute Category: Medical Code(s): E66.9 - Obesity, unspecified (4) Depression: Status: Acute Qualifiers: Depression Type: unspecified Qualified Code(s): F32.A - Depression, unspecified Category: Medical Code(s): F32.9 - Major depressive disorder, single episode, unspecified (5) Anxiety: Status: Acute Category: Medical Code(s): F41.9 - Anxiety disorder, unspecified (6) Tobacco use: Status: Acute Category: Social Hx Code(s): Z72.0 - Tobacco use (7) Rubella non-immune status, antepartum: Status: Acute Category: Medical Code(s): O09.899 - Supervision of other high risk pregnancies, unspecified trimester; Z28.39 - Other
[2022-07-01 09:00] VITALS: BP 125/70; PULSE 88; RESP 18; TEMP 36.5
[2022-07-01 17:00] VITALS: BP 135/85; PULSE 90; RESP 18; TEMP 36.4
[2022-07-01 21:15] VITALS: BP 131/61; PULSE 83; RESP 17; TEMP 36.3; O2SAT 99
--- NOTE | 2022-07-02 08:13 | EXP.DC.SUM ---
General Admission date:: 06/28/22 Discharge date: 07/02/22 HPI HPI HPI: PPD # 3 Patient resting comfortably in bed. Admits she hasn't had much sleep since last night. Admits to mild headaches relieved by Tylenol and Motrin. She is breast feeding. Light lochia. Voiding without difficulty. Passing flatus. Admits to swelling. Denies vision changes. Denies fever/chills, chest pain and shortness of breath. Hospital Course Hospital Course Hospital Course: Ms Melia Larkin is a 27 yo at 39w3d, by first trimester ultrasound, with EDC 07/03/22, who presented to [facility] Labor and Delivery for scheduled elective induction of labor. GBS negative. She has had good care. She underwent induction of labor with Cervidil on 06/28/22 followed by Pitocin. She had a normal spontaneous vaginal delivery with midline episiotomy on 06/29/22 at 2304. She had a baby girl, Debbi, weighing 8 lb 12 oz. APGARs 8, 09. EBL 300 cc. PPD # 1 she was doing okay. Developed a spinal headache and a blood patch was performed. She was breast feeding. Appropriate lochia. Vital signs were stable. Tolerating regular diet. Denied fever/chills, chest pain and shortness of breath. She was voiding without difficulty and passing flatus. Heart was regular rate and rhythm. Lungs clear to auscultation. Abdomen was soft, nontender. PPD # 2 she was doing well. Pain controlled. Headache had resolved. Light lochia. She was voiding without difficulty and passing flatus. Tolerating regular diet. Vital signs were stable. Denied fever/chills, chest pain and shortness of breath. Heart was regular rate and rhythm. Lungs clear to auscultation. Abdomen was soft, nontender. She had trace bilateral lower extremity edema. No calf pain with palpation. PPD # 3 she was resting comfortably. Pain controlled. Admits to headache relieved with Tylenol or Motrin. Vital signs stable. Denied fever/chills, chest pain and shortness of breath. BP normotensive. Light lochia. She was voiding without difficulty and passing flatus. Tolerating regular diet. Vital signs were stable. Heart was regular rate and rhythm. Lungs clear to auscultation. Abdomen was soft, nontender. She had +2 bilateral lower extremity edema. No calf pain with palpation. She was discharged to home. 06/28/22: Hgb 13.0, Hct 39.2 06/30/22: Hgb 10.9, Hct 32.3 Exam Data for Last 24 hours Vital signs and Labs for Last 24 Hours: Temp Pulse Resp BP Pulse Ox 97.3 F L 83 17 131/61 99 07/01/22 21:15 07/01/22 21:15 07/01/22 21:15 07/01/22 21:15 07/01/22 21:15 Microbiology Reports for the Last 24 Hours: Microbiology 06/28/22 16:49 Urine,Clean Catch Urine Culture - Preliminary Gram Positive Cocci Constitutional Constitutional: no acute distress *Routine HEENT Exam Head: Present normocephalic and atraumatic Eye: Absent conjunctivae pink ENT: Present mucous membranes moist *Routine Neck Exam Neck: Present full ROM *Routine Respiratory Exam Respiratory: Present CTA bilaterally and normal respiratory effort *Routine Cardiovascular Exam Cardiovascular: Present RRR *Routine Abdominal Exam Abdominal: Present soft and normoactive bowel sounds; Absent tenderness or distended Comments: Uterine fundus firm and below umbilicus *Routine Rectal Exam Patient deferred: visual exam *Routine Exam Patient deferred: external exam *Routine Extremities Exam Extremities: Present edema (+2 bilateral lower extremity swelling) and full ROM; Absent calf tenderness *Routine Neurological Exam Neurological: Present alert, oriented X3 and moving all extremities Routine Psychiatric Exam Psychiatric: Present normal affect and cooperative Results Data Completed and Pending Labs on day of discharge: Preliminary micro results at discharge 06/28/22 16:49 Urine Culture - Preliminary Urine,Clean Catch Gram Positive Cocci DS: Diagnosis Discharge Diagnosis (1) : Status: Acute (2) H
[2022-07-02 08:43] VITALS: BP 127/72; PULSE 76; RESP 16; TEMP 36.6; O2SAT 100
== END 2022-07-02 11:40 | disposition home or self-care (01) | DRG 807 ==
LOC: OB 16:00
PROVIDERS: Admitting Provider Nurse Practitioner Obstetrics & Gynecology; PCP Nurse Practitioner Family; Visit Provider Obstetrics & Gynecology
DX: O75.81 Maternal exhaustion complicating labor and delivery (principal); Z37.0 Single live birth; Z3A.39 39 weeks gestation of pregnancy; O99.284 Endocrine, nutritional and metabolic diseases complicating childbirth; E03.9 Hypothyroidism, unspecified; G97.1 Other reaction to spinal and lumbar puncture; O99.343 Other mental disorders complicating pregnancy, third trimester; F41.8 Other specified anxiety disorders
CPT/HCPCS: 59409; 62273; 36415; 59025; 80305; 81001; 85007; 85025; 86850; 87086; 87088; 87186; 94761; C1758; C9803; G0283; J2405; U0003; U0005

== ENCOUNTER 2024-04-28 08:44 | Outpatient (CLI) | payer OTHER, SELFPAY ==
[2024-04-28 16:38] LABS: Basophils # 0.1 K/mm3 (0-0.2); Basophils % 0.5 % (0.1-2.0); Eosinophils # 0.2 K/mm3 (0.0-0.4); Eosinophils % 1.8 % (0.1-12.0); Hematocrit 46.4 % (37.0-47.0); Hemoglobin 15.2 g/dL (12.2-16.2); Lymphocytes # 2.1 K/mm3 (0.7-4.5); Lymphocytes % 19.4 % (10-50); Mean Corpuscular HGB Conc 32.8 g/dL (31.8-35.4); Mean Corpuscular Hemoglobin 30.4 pg (27.0-31.2); Mean Corpuscular Volume 92.5 fl (81-99); Mean Platelet Volume 10.2 fl (7.4-10.4); Monocytes # 0.6 K/mm3 (0.1-1.0); Monocytes % 5.2 % (1.7-9.3); Neutrophils % 73.2 % (37.0-80.0); Platelet Count 281 K/mm3 (142-424); Red Blood Count 5.02 M/mm3 (4.20-5.40); Red Cell Distribution Width 13.9 % (11.5-17.5); White Blood Count 10.9 K/mm3 (4.8-10.8)
[2024-04-28 17:01] LABS: Alanine Aminotransferase 36 U/L (12-78); Albumin/Globulin Ratio 1.9 (1.1-1.8); Alkaline Phosphatase 89 U/L (38-126); Aspartate Amino Transferase 37 U/L (14-36); Bilirubin,Total 0.5 mg/dl (0.2-1.3); Blood Urea Nitrogen 14 mg/dl (7-17); Calcium 9.4 mg/dl (8.4-10.2); Carbon Dioxide 24 mmol/L (22.0-30.0); Chloride 106 mmol/L (98-107); Estimated Glomerular Filt Rate 118 ml/min (>60); GFR (African American) 143 ML/MIN (>60); Globulin 2.7 g/dL (1.3-3.2); Glucose 78 mg/dl (74-100); Sodium 138 mmol/L (136-145); Total Protein,Serum 7.7 g/dl (6.3-8.2)
[2024-04-28 17:09] LABS: Total Iron Binding Capacity 319 ug/dL (265-497)
[2024-04-28 17:19] LABS: T4 (Thyroxine) 12.9 ug/dl (5.53-11.0)
[2024-04-28 17:33] LABS: Thyroid Stimulating Hormone 2.96 uIU/mL (0.465-4.68)
[2024-04-28 17:56] LABS: Anion Gap 12.7 mEq/L (5-15); Potassium 4.7 mmoL/L (3.5-5.1)
[2024-04-28 17:58] LABS: Iron 82 ug/dL (37-170)
== END 2024-04-28 23:59 | disposition home or self-care (01) ==
LOC: LAB.DROPOF 05-01 08:44
PROVIDERS: PCP Family Medicine; Visit Provider Family Medicine
DX: E03.8 Other specified hypothyroidism (principal)
CPT/HCPCS: 80050; 80053; 82306; 83540; 83550; 84436; 84443; 85025